=== PATIENT | male | born 1970 | race Caucasian/White ===

== ENCOUNTER 2021-08-08 20:08 | Emergency (ER) | payer MEDICAID | END 2021-08-08 21:59 | disposition home or self-care (01) | LOC: CSHERS 20:08 | DX: M70.31 Other bursitis of elbow, right elbow (principal); F17.210 Nicotine dependence, cigarettes, uncomplicated; W22.8XXA Striking against or struck by other objects, initial encounter ==

== ENCOUNTER 2022-05-02 16:47 | Emergency (ER) | payer SELFPAY | END 2022-05-02 21:19 | disposition left against medical advice (07) | LOC: CSHERS 16:47 | DX: Z53.21 Procedure and treatment not carried out due to patient leaving prior to being seen by health care provider (principal) ==